=== PATIENT | female | born 1975 | race Caucasian/White ===

== ENCOUNTER 2021-10-06 07:38 | Emergency (ER) | payer BC ==
[~2021-10-06] VITALS: Ht 157.5 cm; Wt 118.2 kg
[2021-10-06] MEDS ORDERED: ondansetron/PF 4mg/2ml inj IV ONE (08:10)
[2021-10-06 09:10] LABS: BASOPHILS % (AUTO) 0.1 % (0-1); EOSINOPHILS % (AUTO) 0.2 % (0-6); HEMATOCRIT 39.8 % (35.0-45.0); HEMOGLOBIN 13.6 g/dl (12.0-16.0); LYMPHOCYTES # (AUTO) 0.5 X10'3 (1.1-4.8); LYMPHOCYTES % (AUTO) 4.1 % (21-51); MEAN CORPUSCULAR HEMOGLOBIN 31.4 PG (27.0-31.0); MEAN CORPUSCULAR HGB CONC 34.3 g/dL (33.0-36.5); MEAN CORPUSCULAR VOLUME 91.7 FL (78-98); MEAN PLATELET VOLUME 7.7 FL (7.4-10.4); MONOCYTES # (AUTO) 0.4 X10'3 (0-0.9); MONOCYTES % (AUTO) 3.3 % (2-12); NEUTROPHILS # (AUTO) 10.9 X10'3 (1.8-7.7); NEUTROPHILS % (AUTO) 92.3 % (42-75); PLATELET COUNT 228 X10'3 (140-440); RED BLOOD COUNT 4.34 X10'6 (4.20-5.60); RED CELL DISTRIBUTION WIDTH 12.9 % (11.5-14.5); WHITE BLOOD COUNT 11.8 X10'3 (4.5-11.0)
[2021-10-06 09:39] LABS: ALANINE AMINOTRANSFERASE 26 U/L (12-78); ALBUMIN 3.6 G/DL (3.4-5.0); ALKALINE PHOSPHATASE 50 IU/L (46-116); ANION GAP 13 (8-16); ASPARTATE AMINO TRANSFERASE 13 U/L (10-37); BILIRUBIN,TOTAL 0.4 MG/DL (0.1-1.0); BLOOD UREA NITROGEN 12 MG/DL (7-18); BUN/CREATININE RATIO 13.3 (6.6-38.0); CALCIUM 9.5 MG/DL (8.5-10.1); CHLORIDE 105 MMOL/L (99-107); GLUCOSE 209 MG/DL (70-104); LIPASE 65 U/L (73-393); POTASSIUM 4.2 MMOL/L (3.5-5.1); SODIUM 141 MMOL/L (135-145); TOTAL CARBON DIOXIDE 23.3 MMOL/L (24-32); TOTAL PROTEIN 7.2 G/DL (6.4-8.2); eGFR 67 ML/MIN
[2021-10-06 10:11] LABS: CLARITY,URINE CLOUDY (Clear); COLOR,URINE YELLOW (Yellow); GLUCOSE, URINE NEGATIVE (Neg); KETONES,URINE NEGATIVE (Neg); OCCULT BLOOD,URINE LARGE (Neg); PROTEIN,URINE TRACE mg/dl (Neg); UA COLLECTION TYPE CLN CATCH MIDSTREAM
[2021-10-06 10:12] LABS: LEUKOCYTE ESTERASE ,URINE SMALL (Neg); NITRITES, URINE POSITIVE (Neg); URINE HCG NEGATIVE (NEG); UROBILINOGEN,URINE 0.2 E.U/dL (0.2-1.0)
[2021-10-06 10:23] LABS: BACTERIA,URINE 4+ /HPF (Neg); MUCUS STRANDS NONE SEEN /LPF (Neg); SQUAMOUS EPITHELIAL CELL,UR MODERATE /LPF (FEW); WBC CLUMPS,URINE FEW /HPF (NEGATIVE); WBC,URINE 30-50 /HPF (0-4)
--- NOTE | 2021-10-06 10:50 | NUR ---
plastic technician at bedside.
[2021-10-06] MEDS ORDERED: HYDR-3965 PO (11:39)
[2021-10-06] MEDS ORDERED: ONDA8TAB13 PO (11:39)
[2021-10-06 12:01] VITALS: BP 158/90
--- NOTE | 2021-10-10 15:55 | NUR ---
PT CALLED REGARDING HER VISIT ON 10/06, NOTIFIED THAT SHE HAD A POSITIVE UTI AND THAT ABX ARE NEEDED. PT REQUESTED THAT HER RX BE CALLED INTO THE [facility] K[facility]LEX 500MG 1 TABLET PO QID x7 DAYS CALLED TO [facility] REQUESTED
== END 2021-10-06 12:05 | disposition home or self-care (01) ==
LOC: ER 07:39
DX: K80.50 Calculus of bile duct without cholangitis or cholecystitis without obstruction (principal); R10.13 Epigastric pain; Z87.442 Personal history of urinary calculi; Z88.8 Allergy status to other drugs, medicaments and biological substances; Z79.899 Other long term (current) drug therapy
CPT/HCPCS: 36415; 76700; 76770; 80053; 81001; 81025; 83690; 85025; 87077; 87088; 87186; 96374; 99284; J2405

== ENCOUNTER 2022-01-21 12:30 | Emergency (ER) | payer BC ==
[~2022-01-21] VITALS: Ht 154.9 cm; Wt 116.0 kg
[~2022-01-21 12:30] MED LIST: ONDA8TAB13 PO
[2022-01-21 13:29] LABS: MEAN CORPUSCULAR VOLUME 90.9 FL (78-98); MEAN PLATELET VOLUME 7.4 FL (7.4-10.4)
[2022-01-21 13:31] LABS: BASOPHILS % (AUTO) 0.2 % (0-1); EOSINOPHILS # (AUTO) 0.1 X10'3 (0-0.9); EOSINOPHILS % (AUTO) 0.6 % (0-6); HEMATOCRIT 40.2 % (35.0-45.0); HEMOGLOBIN 13.5 g/dl (12.0-16.0); LYMPHOCYTES # (AUTO) 0.8 X10'3 (1.1-4.8); LYMPHOCYTES % (AUTO) 7.8 % (21-51); MEAN CORPUSCULAR HEMOGLOBIN 30.6 PG (27.0-31.0); MEAN CORPUSCULAR HGB CONC 33.6 g/dL (33.0-36.5); MONOCYTES # (AUTO) 0.6 X10'3 (0-0.9); MONOCYTES % (AUTO) 5.9 % (2-12); NEUTROPHILS # (AUTO) 8.6 X10'3 (1.8-7.7); NEUTROPHILS % (AUTO) 85.5 % (42-75); PLATELET COUNT 301 X10'3 (140-440); RED BLOOD COUNT 4.43 X10'6 (4.20-5.60); RED CELL DISTRIBUTION WIDTH 13.6 % (11.5-14.5)
[2022-01-21 13:45] LABS: ALANINE AMINOTRANSFERASE 19 U/L (12-78); ALBUMIN 3.3 G/DL (3.4-5.0); ALKALINE PHOSPHATASE 57 IU/L (46-116); ANION GAP 11 (8-16); ASPARTATE AMINO TRANSFERASE 8 U/L (10-37); BILIRUBIN,TOTAL 0.3 MG/DL (0.1-1.0); BLOOD UREA NITROGEN 15 MG/DL (7-18); BUN/CREATININE RATIO 14.3 (6.6-38.0); CHLORIDE 104 MMOL/L (99-107); CREATININE 1.05 MG/DL (0.40-0.90); GLUCOSE 250 MG/DL (70-104); LIPASE 55 U/L (73-393); POTASSIUM 4.3 MMOL/L (3.5-5.1); SODIUM 140 MMOL/L (135-145); TOTAL CARBON DIOXIDE 25.2 MMOL/L (24-32); TOTAL PROTEIN 6.7 G/DL (6.4-8.2); eGFR 56 ML/MIN
[2022-01-21 13:47] LABS: CLARITY,URINE SLIGHTLY CLOUDY (Clear); COLOR,URINE YELLOW (Yellow); GLUCOSE, URINE 500 mg/dl (Neg); KETONES,URINE NEGATIVE (Neg); LEUKOCYTE ESTERASE ,URINE LARGE (Neg); NITRITES, URINE NEGATIVE (Neg); OCCULT BLOOD,URINE TRACE-INTACT (Neg); PROTEIN,URINE NEGATIVE (Neg); UROBILINOGEN,URINE 0.2 E.U/dL (0.2-1.0)
[2022-01-21 13:48] LABS: UA COLLECTION TYPE CLN CATCH MIDSTREAM
[2022-01-21 13:49] LABS: URINE HCG NEGATIVE (NEG)
[2022-01-21 13:57] LABS: SQUAMOUS EPITHELIAL CELL,UR MANY /LPF (FEW); WBC,URINE 50-100 /HPF (0-4)
[2022-01-21 14:00] LABS: BACTERIA,URINE 2+ /HPF (Neg); RBC,URINE NONE SEEN /HPF (0-2)
[2022-01-21] MEDS ORDERED: morphine 4 MG/ML inj SYRINge IV ONE ×2 (14:05→16:45)
[2022-01-21] MEDS ORDERED: ondansetron/PF 4mg/2ml inj IV ONE ×2 (14:05→16:45)
[2022-01-21] MEDS ORDERED: normal saline 1000ml 1,000 ML IV ONE (14:05)
[2022-01-21] MEDS ORDERED: CefTRIAXone 2gm/D5W 50ml BAG 50 ML IV ONE ×2 (14:05→15:30)
--- NOTE | 2022-01-21 15:03 | NUR ---
back from ct scan in stable condition via gabriel
--- NOTE | 2022-01-21 16:00 | NUR ---
PT C/O UPSET STOMACH, INFORMED CINTHIA OSEI PLEASE SEE NEW ORDERS.
[2022-01-21] MEDS ORDERED: calcium carbonate 500mg chew tablet PO ONE ×2 (16:10)
[2022-01-21] MEDS ORDERED: ketorolac trometh. 30mg/ml inj. IV ONE (16:45)
[2022-01-21] MEDS ORDERED: pantoprazole 40mg Tablet.DR PO STA (16:45)
[2022-01-21 17:01] VITALS: BP 120/82
[2022-01-21] MEDS ORDERED: ONDA4TAB12 PO (18:07)
[2022-01-21] MEDS ORDERED: SULF1TAB45 PO (18:07)
[2022-01-21] MEDS ORDERED: FLO0.4C PO (18:07)
[2022-01-21] MEDS ORDERED: HYDR-3965 PO (18:07)
[2022-01-21] MEDS ORDERED: tamsulosin 0.4mg capsule PO SCH (21:00)
== END 2022-01-21 18:13 | disposition home or self-care (01) ==
LOC: ER 12:30
DX: N20.1 Calculus of ureter (principal); N39.0 Urinary tract infection, site not specified; Z88.8 Allergy status to other drugs, medicaments and biological substances
CPT/HCPCS: 36415; 74176; 80053; 81001; 81025; 83690; 85025; 96365; 96366; 96375; 96376; 99284; J0696; J1885; J2270; J2405; J7030

== ENCOUNTER 2022-04-19 08:20 | Emergency (ER) | payer BC ==
[~2022-04-19] VITALS: Ht 157.5 cm; Wt 117.3 kg
[~2022-04-19 08:20] MED LIST changes: +ONDA4TAB12 PO
[2022-04-19] MEDS ORDERED: ketorolac tromethamine 15mg/ml inj. IV ONE (08:50)
[2022-04-19 09:26] LABS: BASOPHILS % (AUTO) 0.4 % (0-1); EOSINOPHILS # (AUTO) 0.1 X10'3 (0-0.9); EOSINOPHILS % (AUTO) 1.6 % (0-6); HEMATOCRIT 36.6 % (35.0-45.0); HEMOGLOBIN 12.3 g/dl (12.0-16.0); LYMPHOCYTES # (AUTO) 0.9 X10'3 (1.1-4.8); LYMPHOCYTES % (AUTO) 13.6 % (21-51); MEAN CORPUSCULAR HEMOGLOBIN 30.9 PG (27.0-31.0); MEAN CORPUSCULAR HGB CONC 33.6 g/dL (33.0-36.5); MEAN PLATELET VOLUME 7.5 FL (7.4-10.4); MONOCYTES # (AUTO) 0.4 X10'3 (0-0.9); MONOCYTES % (AUTO) 6.2 % (2-12); NEUTROPHILS # (AUTO) 5.3 X10'3 (1.8-7.7); NEUTROPHILS % (AUTO) 78.2 % (42-75); PLATELET COUNT 256 X10'3 (140-440); RED BLOOD COUNT 3.97 X10'6 (4.20-5.60); RED CELL DISTRIBUTION WIDTH 13.3 % (11.5-14.5); WHITE BLOOD COUNT 6.7 X10'3 (4.5-11.0)
[2022-04-19 09:27] LABS: CLARITY,URINE SLIGHTLY CLOUDY (Clear); COLOR,URINE YELLOW (Yellow); GLUCOSE, URINE NEGATIVE (Neg); KETONES,URINE NEGATIVE (Neg); LEUKOCYTE ESTERASE ,URINE TRACE (Neg); NITRITES, URINE NEGATIVE (Neg); OCCULT BLOOD,URINE LARGE (Neg); PROTEIN,URINE 30 mg/dl (Neg); UROBILINOGEN,URINE 0.2 E.U/dL (0.2-1.0)
[2022-04-19 09:36] LABS: UA COLLECTION TYPE NON-SPECIFIED
[2022-04-19 09:43] LABS: BACTERIA,URINE NONE SEEN /HPF (Neg); RBC,URINE 50-100 /HPF (0-2); SQUAMOUS EPITHELIAL CELL,UR FEW /LPF (FEW); WBC,URINE 0-4 /HPF (0-4)
[2022-04-19 09:43] LABS: ALANINE AMINOTRANSFERASE 34 U/L (12-78); ALBUMIN 3.6 G/DL (3.4-5.0); ALBUMIN/GLOBULIN RATIO 1.1 (1.1-1.5); ALKALINE PHOSPHATASE 41 IU/L (46-116); ANION GAP 10 (8-16); ASPARTATE AMINO TRANSFERASE 17 U/L (10-37); BILIRUBIN,TOTAL 0.3 MG/DL (0.1-1.0); BLOOD UREA NITROGEN 14 MG/DL (7-18); BUN/CREATININE RATIO 15.2 (6.6-38.0); CALCIUM 9.5 MG/DL (8.5-10.1); CHLORIDE 109 MMOL/L (99-107); CREATININE 0.92 MG/DL (0.40-0.90); GLUCOSE 176 MG/DL (70-104); POTASSIUM 4.3 MMOL/L (3.5-5.1); SODIUM 141 MMOL/L (135-145); TOTAL CARBON DIOXIDE 22.4 MMOL/L (24-32); TOTAL PROTEIN 6.8 G/DL (6.4-8.2); eGFR 65 ML/MIN
[2022-04-19 10:23] VITALS: BP 140/83
== END 2022-04-19 11:50 | disposition home or self-care (01) ==
LOC: ER 08:20
DX: N23 Unspecified renal colic (principal); R11.0 Nausea; N39.0 Urinary tract infection, site not specified; Z87.442 Personal history of urinary calculi; Z90.49 Acquired absence of other specified parts of digestive tract; Z88.8 Allergy status to other drugs, medicaments and biological substances; Z79.899 Other long term (current) drug therapy
CPT/HCPCS: 36415; 74176; 80053; 81001; 85025; 96374; 99284; J1885

== ENCOUNTER 2022-07-31 10:54 | Inpatient (IN) | payer BC ==
[~2022-07-31] VITALS: Ht 157.5 cm; Wt 112.3 kg
[2022-07-31 13:18] LABS: BASOPHILS % (AUTO) 0.3 % (0-1); EOSINOPHILS # (AUTO) 0.2 X10'3 (0-0.9); EOSINOPHILS % (AUTO) 2.6 % (0-6); HEMATOCRIT 39.2 % (35.0-45.0); HEMOGLOBIN 13.4 g/dl (12.0-16.0); LYMPHOCYTES # (AUTO) 1.2 X10'3 (1.1-4.8); MEAN CORPUSCULAR HEMOGLOBIN 30.7 PG (27.0-31.0); MEAN CORPUSCULAR HGB CONC 34.1 g/dL (33.0-36.5); MEAN CORPUSCULAR VOLUME 89.9 FL (78-98); MEAN PLATELET VOLUME 7.6 FL (7.4-10.4); MONOCYTES # (AUTO) 0.6 X10'3 (0-0.9); MONOCYTES % (AUTO) 6.7 % (2-12); NEUTROPHILS # (AUTO) 6.6 X10'3 (1.8-7.7); NEUTROPHILS % (AUTO) 76.4 % (42-75); PLATELET COUNT 303 X10'3 (140-440); RED BLOOD COUNT 4.36 X10'6 (4.20-5.60); WHITE BLOOD COUNT 8.6 X10'3 (4.5-11.0)
[2022-07-31 13:30] LABS: ALANINE AMINOTRANSFERASE 21 U/L (12-78); ALBUMIN 3.3 G/DL (3.4-5.0); ALBUMIN/GLOBULIN RATIO 0.8 (1.1-1.5); ALKALINE PHOSPHATASE 57 IU/L (46-116); ANION GAP 11 (8-16); ASPARTATE AMINO TRANSFERASE 9 U/L (10-37); BILIRUBIN,TOTAL 0.3 MG/DL (0.1-1.0); BLOOD UREA NITROGEN 14 MG/DL (7-18); BUN/CREATININE RATIO 14.4 (6.6-38.0); CALCIUM 10.9 MG/DL (8.5-10.1); CHLORIDE 106 MMOL/L (99-107); CREATININE 0.97 MG/DL (0.40-0.90); GLUCOSE 252 MG/DL (70-104); POTASSIUM 4.6 MMOL/L (3.5-5.1); SODIUM 142 MMOL/L (135-145); TOTAL CARBON DIOXIDE 25.4 MMOL/L (24-32); TOTAL PROTEIN 7.7 G/DL (6.4-8.2); eGFR 61 ML/MIN
[2022-07-31] MEDS ORDERED: ondansetron/PF 4mg/2ml inj IV ONE (14:45)
[2022-07-31] MEDS ORDERED: vancomycin inj 1,000 MG in normal saline 250ml IV soln 250 ML IV ONE (14:45)
[2022-07-31] MEDS ORDERED: normal saline 1000ml 1,000 ML IV ONE (14:45)
[2022-07-31] MEDS ORDERED: vancomycin/NS 1 GM ADD-VANTAGE 250 ML IV ONE (14:57)
[2022-07-31] MEDS ORDERED: morphine 4 MG/ML inj SYRINge IV ONE ×2 (15:05→16:50)
[2022-07-31] MEDS ORDERED: iohexol 350MG/ML 100ml bottle IV ONE (15:25)
[2022-07-31] MEDS ORDERED: ALBU17AE26 PO (16:21)
[2022-07-31] MEDS ORDERED: CEPH-585 PO (16:21)
[2022-07-31] MEDS ORDERED: [UNRECOGNIZED DRUG - CODE] PO (16:21)
[2022-07-31] MEDS ORDERED: SULF1TAB45 PO (16:21)
[2022-07-31] MEDS ORDERED: METF-438 PO (16:21)
[2022-07-31] MEDS ORDERED: AMOX500C42 PO (16:21)
[2022-07-31] MEDS ORDERED: naproxen 500mg tablet PO PRN (16:45)
[2022-07-31] MEDS ORDERED: magnesium hydroxide 30ml (MOM) UD suspension PO PRN (16:45)
[2022-07-31] MEDS ORDERED: diphenhydrAMINE 25mg capsule PO PRN (16:45)
[2022-07-31] MEDS ORDERED: acetaminophen 325mg tablet PO PRN ×2 (16:45)
[2022-07-31] MEDS ORDERED: POTASSIUM BICARB 20meq eff tab 20 MEQ TABLET.EFF PO PRN ×2 (16:45)
[2022-07-31] MEDS ORDERED: morphine 2 MG/ML inj. syringe IV PRN ×2 (16:45)
[2022-07-31] MEDS ORDERED: bisacodyl 10mg suppository rectal RC PRN (16:45)
[2022-07-31] MEDS ORDERED: potassium CL 10mEq/100ml bag 100 ML IV PRN (16:45)
[2022-07-31] MEDS ORDERED: magnesium 2GM in 50ml NS 50 ML IV PRN (16:45)
[2022-07-31] MEDS ORDERED: acetaminophen 650mg rectal suppository RC PRN (16:45)
[2022-07-31] MEDS ORDERED: HYDROcodone/acetaminophen 10/325mg tab PO PRN (16:45)
[2022-07-31] MEDS ORDERED: magnesium Cl slow-release 64mg tablet PO PRN (16:45)
[2022-07-31] MEDS ORDERED: DEXTROSE 15 GM of carb/4 tabs (each vial/BOTTLE has 4 tablets) PO PRN ×2 (16:45)
[2022-07-31] MEDS ORDERED: glucagon, human recombinant 1mg kit SUBCUT PRN (16:45)
[2022-07-31] MEDS ORDERED: ondansetron/PF 4mg/2ml inj IV PRN (16:45)
[2022-07-31] MEDS ORDERED: MESSAGE TO PHARMACY PO ONE (16:45)
[2022-07-31] MEDS ORDERED: magnesium 4gm in 100ml NS 100 ML IV PRN (16:45)
[2022-07-31] MEDS ORDERED: dextrose 50%-water 50ml dispensing syringe IV PRN ×2 (16:45)
[2022-07-31] MEDS ORDERED: albuterol 2.5 MG/3 ML nebule NEB PRN (16:45)
[2022-07-31] MEDS ORDERED: mag hydrox/Alum hydrox/simeth 30ml oral suspension PO PRN (16:45)
[2022-07-31] MEDS ORDERED: ipratropium/albuterol 3ml nebule NEB PRN (17:00)
[2022-07-31] MEDS ORDERED: mag hydrox/Alum hydrox/simeth 30ml oral suspension PO ONE (17:00)
[2022-07-31] MEDS ORDERED: famotidine/PF 10 mg/ml inj IV ONE (17:05)
[2022-07-31 17:16] LABS: HEMOGLOBIN A1C 7.7 % (4.5-6.2)
[2022-07-31] MEDS: normal saline 1000ml 1,000 ML IV SCH (17:35)
[2022-07-31] MEDS: piperacillin/tazo 3.375gm/50ml 50 ML IV SCH (17:37)
[2022-07-31] MEDS: K and/or MAG REPLACEMENT MC SCH (19:22)
[2022-07-31] MEDS: docusate sod 100mg capsule PO SCH (19:22)
[2022-07-31] MEDS: heparin, porcine 5000 units/ml vial SQ SCH (19:55)
[2022-07-31] MEDS: insulin glargine (Lantus) pen - multi-dose SQ SCH (20:34)
[2022-08-01] MEDS: normal saline 1000ml 1,000 ML IV SCH ×3 (00:54→16:48)
[2022-08-01] MEDS: piperacillin/tazo 3.375gm/50ml 50 ML IV SCH ×3 (00:54→17:42)
[2022-08-01 04:45] VITALS: BP 111/58
[2022-08-01] MEDS: vancomycin/NS 1 GM ADD-VANTAGE 250 ML IV SCH ×2 (05:04→16:42)
[2022-08-01 06:00] VITALS: BP 99/63
[2022-08-01 06:13] LABS: ALANINE AMINOTRANSFERASE 45 U/L (12-78); ALBUMIN 2.8 G/DL (3.4-5.0); ALBUMIN/GLOBULIN RATIO 0.8 (1.1-1.5); ALKALINE PHOSPHATASE 70 IU/L (46-116); ANION GAP 11 (8-16); ASPARTATE AMINO TRANSFERASE 25 U/L (10-37); BILIRUBIN,TOTAL 0.2 MG/DL (0.1-1.0); BLOOD UREA NITROGEN 15 MG/DL (7-18); BUN/CREATININE RATIO 16.3 (6.6-38.0); CALCIUM 9.9 MG/DL (8.5-10.1); CHLORIDE 107 MMOL/L (99-107); CHOL/HDL RATIO 4.5 (0.00-4.99); CHOLESTEROL 112 MG/DL (0-200); CREATININE 0.92 MG/DL (0.40-0.90); GLUCOSE 183 MG/DL (70-104); HDL CHOLESTEROL 25 MG/DL (35-60); LDL CHOLESTEROL 69 MG/DL (50-100); MAGNESIUM 1.7 MG/DL (1.5-2.4); PHOSPHORUS 3.2 MG/DL (2.3-4.5); POTASSIUM 4.4 MMOL/L (3.5-5.1); SODIUM 143 MMOL/L (135-145); TOTAL CARBON DIOXIDE 25.2 MMOL/L (24-32); TOTAL PROTEIN 6.5 G/DL (6.4-8.2); TRIGLYCERIDES 128 MG/DL (20-135); eGFR 65 ML/MIN
[2022-08-01] MEDS: pantoprazole 40mg Tablet.DR PO SCH (07:21)
[2022-08-01] MEDS: docusate sod 100mg capsule PO SCH ×2 (07:21→20:00)
[2022-08-01] MEDS: heparin, porcine 5000 units/ml vial SQ SCH ×2 (07:22→20:51)
[2022-08-01] MEDS: K and/or MAG REPLACEMENT MC SCH ×2 (07:22→20:00)
[2022-08-01 08:14] LABS: BASOPHILS % (AUTO) 0.5 % (0-1); EOSINOPHILS # (AUTO) 0.2 X10'3 (0-0.9); EOSINOPHILS % (AUTO) 2.5 % (0-6); HEMATOCRIT 33.5 % (35.0-45.0); HEMOGLOBIN 11.3 g/dl (12.0-16.0); LYMPHOCYTES # (AUTO) 1.1 X10'3 (1.1-4.8); LYMPHOCYTES % (AUTO) 17.7 % (21-51); MEAN CORPUSCULAR HEMOGLOBIN 30.7 PG (27.0-31.0); MEAN CORPUSCULAR HGB CONC 33.8 g/dL (33.0-36.5); MEAN CORPUSCULAR VOLUME 90.8 FL (78-98); MEAN PLATELET VOLUME 8.4 FL (7.4-10.4); MONOCYTES # (AUTO) 0.6 X10'3 (0-0.9); MONOCYTES % (AUTO) 9.1 % (2-12); NEUTROPHILS # (AUTO) 4.3 X10'3 (1.8-7.7); NEUTROPHILS % (AUTO) 70.2 % (42-75); PLATELET COUNT 283 X10'3 (140-440); RED BLOOD COUNT 3.69 X10'6 (4.20-5.60); RED CELL DISTRIBUTION WIDTH 13.4 % (11.5-14.5); WHITE BLOOD COUNT 6.2 X10'3 (4.5-11.0)
--- NOTE | 2022-08-01 09:40 | NUR ---
Per EMR pt with T2DM, well controlled with A1c 7.7%. Written DM education with RD contact information placed in patient's chart. Will remain available. Addendum: 08/01/22 at [address] Amended: Links added.
--- NOTE | 2022-08-01 10:16 | NUR ---
Message: MAULIK HOPPER RM [id number]. REFUSING INSULIN FRO BLOOD GLUCOSE OF 201. THANK YOU SANDRINE MO Custom Responses: promotional table spacer
[2022-08-01] MEDS: insulin Lispro (HumaLOG) vial - multi-dose SQ SCH (10:33)
[2022-08-01 11:00] VITALS: BP 101/66
--- NOTE | 2022-08-01 16:25 | NUR ---
Message: RE MELLO HOPPER RM [id number] PLEASE CALL PT HAS QUESTIONS RE HER ANTIBIOTICS I AM ALSO HAVING DIFFICULTY WITH PATIENT THANK YOU, SANDRINE MO Custom Responses: promotional table spacer Subscriber Id:
--- NOTE | 2022-08-01 17:52 | NUR ---
END OF SHIFT NOTE: PT REUSED INSULIN THIS AM WHEN BG WAS 201 AND HAD EATEN 50G OF CARBS. I EXPLAINED D/T HER CONTRAST FOR SCAN IT WAS CONTRAINDICTED. DR GARRIDO NOTIFIED, HE SPOKE WITH THE PATIENT. SHE RELUCTANTLY AGREED TO TAKE INSULIN, BUT ONLY 2 TIMES A DAY. I GAVE 8 UNITS IN AM, CHECKED HER BG IN AFTERNOON IT WAS 14
--- NOTE | 2022-08-01 17:54 | NUR ---
CONTINUATION OF PREV NOTE. BG WAS 146 NO INSULIN GIVEN. PT HAS TO BE PLACED IN A SHARED ROOM TO ALLOW A SINGLE ROOM FOR CARDIAC PROCEDURE PATIENTS. PT GOT EXTREMELY UPSET STATING TO OTHER NURSES SHE DOESNT WANT TO BREATH OTHER PEOPLES AIR, SHE DEMANDED A PRIVATE ROOM. EVENTUALLY SHE GATHERED ALL HER BAGS AND SATI IN THE HALLWAY NEAR A WINDOW. AT 1600 I ASKED HER IF SHE WAS WILLING TO ALLOW ME TO DO WOUND CARE AND START HER IV ANTIBIOTICS. SHE REFUSED THE WOUND CARE AND DEMANDED TO TALK TO DR GARRIDO RE HER IV ANTIBIOTICS. DR GARRIDO CALLED STATED HE WOULD NOT BE RETURNING TO THE FLOOR TO SPEAK WITH HER, HE WOULD SEE HER TOMORROW. HE STATED IF SHE LEFT THE PCU UNIT SHE WOULD BE CONSIDERED AN AMA AND WOULD NEED TO RETURN TO ED TO BE READMITTED. I EXPLANED THIS TO THE PATIENT, SHE DEMANDED A WRITTEN POLICY THAT STATED THIS. I TOLD HER I WAS NOT SURE THERE WAS ONE BUT I WOULD LOOK INTO IT. I EXPLAINED THE RISK OF LEAVING AND AN EVENT HAPPENING WITH NO LICENSED STAFF TO HELP. PATIENT CURRENTLY IN ROOM CRYING VERY LOUDLY, TELLING ME I NEEDED TO GET HER A NAPROXEN. I SATED I WOULD SEE WHA WAS ORDERED, SHE RETURNED WITH EITHER YOU GUYS CAN GIVE IT TO ME OR I CAN TAKE MY OWN. I TOLD SHE CAN NOT TAKE HER OWN MEDS THEN I ASKED IF SHE HAD HER MEDS WITH HER SHE RETURNED WITH "NO" SHE ASKED FOR SOMETHIGN TO "CALM HER DOWN" THAT SHE HAS A PHOBIA AND CANT CONTROL IT SHE IS SCARED TO BREATH THE SAME AIR OTHER PEOPLE. I ASKED IF SHE TAKES ANYTHING AT HOME SHE SAID NO, I DONT GO AROUND OTHER PEOPLE. I TOLD HER I WOULD PAGE THE DR, AND CALL PHARMACY FOR NAPROXEN,
--- NOTE | 2022-08-01 18:00 | NUR ---
Pt refused 1800 vital signs.
--- NOTE | 2022-08-01 18:09 | NUR ---
Message: RE MELLO HOPPER RM [id number] PT REQUESTING CPAP ORDER AND "SOMETHING TO CALM HER DOWN" THANK YOU SANDRINE MO Custom Responses: promotional table spacer
[2022-08-01] MEDS ORDERED: LORazepam 0.5 MG tablet PO PRN (19:15)
--- NOTE | 2022-08-01 20:00 | NUR ---
When rounding on patient, pt stated that she was "recording everything with video", RN informed pt that it is illegal to record people without consent. Pt then responded by saying "well I am using voice recordings", RN then informed pt that any form of recording without consent is illegal. medical receptionist notified of interaction.
[2022-08-01] MEDS: insulin glargine (Lantus) pen - multi-dose SQ SCH (20:46)
[2022-08-01] MEDS: HYDROcodone/acetaminophen 5mg/325mg tablet PO PRN ×2 (21:15→21:24)
--- NOTE | 2022-08-01 21:32 | NUR ---
Pt resting in bed. R hand IV removed d/t pain at site, site appears WNL, gauze and tape dressing applied. R abdomen wound dressing changed at 2100 - wound cleansed with sterile saline and gauze, new telfa gauze and foam tape dressing applied. Primary RN offered pre-medication for pain, pt denies need for intervention. After dressing change, pt requested Mabel pain medication for 8/10 pain around cellulitis area (RLQ).
[2022-08-01 22:00] VITALS: BP 109/62
[2022-08-02] MEDS: piperacillin/tazo 3.375gm/50ml 50 ML IV SCH ×2 (00:50→08:19)
[2022-08-02 02:00] VITALS: BP 110/72
[2022-08-02] MEDS ORDERED: VANCOMYCIN LEVEL IV ONE (03:30)
[2022-08-02] MEDS: normal saline 1000ml 1,000 ML IV SCH ×2 (03:49→08:45)
[2022-08-02 03:53] LABS: BASOPHILS % (AUTO) 0.7 % (0-1); EOSINOPHILS # (AUTO) 0.1 X10'3 (0-0.9); EOSINOPHILS % (AUTO) 2.3 % (0-6); HEMATOCRIT 33.2 % (35.0-45.0); HEMOGLOBIN 11.3 g/dl (12.0-16.0); LYMPHOCYTES # (AUTO) 1.4 X10'3 (1.1-4.8); LYMPHOCYTES % (AUTO) 24.9 % (21-51); MEAN CORPUSCULAR HEMOGLOBIN 30.7 PG (27.0-31.0); MEAN CORPUSCULAR HGB CONC 33.9 g/dL (33.0-36.5); MEAN CORPUSCULAR VOLUME 90.4 FL (78-98); MEAN PLATELET VOLUME 7.6 FL (7.4-10.4); MONOCYTES # (AUTO) 0.4 X10'3 (0-0.9); MONOCYTES % (AUTO) 7.6 % (2-12); NEUTROPHILS # (AUTO) 3.5 X10'3 (1.8-7.7); NEUTROPHILS % (AUTO) 64.5 % (42-75); PLATELET COUNT 280 X10'3 (140-440); RED BLOOD COUNT 3.67 X10'6 (4.20-5.60); RED CELL DISTRIBUTION WIDTH 13.2 % (11.5-14.5); WHITE BLOOD COUNT 5.5 X10'3 (4.5-11.0)
[2022-08-02 04:07] LABS: ALANINE AMINOTRANSFERASE 40 U/L (12-78); ALBUMIN 2.7 G/DL (3.4-5.0); ALBUMIN/GLOBULIN RATIO 0.8 (1.1-1.5); ALKALINE PHOSPHATASE 63 IU/L (46-116); ANION GAP 7 (8-16); ASPARTATE AMINO TRANSFERASE 24 U/L (10-37); BILIRUBIN,TOTAL 0.3 MG/DL (0.1-1.0); BLOOD UREA NITROGEN 13 MG/DL (7-18); BUN/CREATININE RATIO 15.9 (6.6-38.0); CALCIUM 9.5 MG/DL (8.5-10.1); CHLORIDE 109 MMOL/L (99-107); CREATININE 0.82 MG/DL (0.40-0.90); GLUCOSE 156 MG/DL (70-104); MAGNESIUM 1.8 MG/DL (1.5-2.4); PHOSPHORUS 3.3 MG/DL (2.3-4.5); POTASSIUM 4.2 MMOL/L (3.5-5.1); SODIUM 141 MMOL/L (135-145); TOTAL CARBON DIOXIDE 25.2 MMOL/L (24-32); VANCOMYCIN,TROUGH 7.2 UG/ML (6.0-14.0); eGFR 74 ML/MIN
[2022-08-02] MEDS: vancomycin/NS 1 GM ADD-VANTAGE 250 ML IV SCH (04:47)
[2022-08-02 06:00] VITALS: BP 109/52
[2022-08-02] MEDS: K and/or MAG REPLACEMENT MC SCH (08:00)
[2022-08-02] MEDS: heparin, porcine 5000 units/ml vial SQ SCH (08:19)
[2022-08-02] MEDS: docusate sod 100mg capsule PO SCH (08:20)
[2022-08-02] MEDS: pantoprazole 40mg Tablet.DR PO SCH (08:20)
--- NOTE | 2022-08-02 08:47 | NUR ---
promotional table spacer Page Accepted promotional table spacer Message: NAYELI HOPPER RM [id number] CRITICAL LAB RESULT. +MRSA IN ABD WOUND THANK YOU, SANDRINE MO Custom Responses: promotional table spacer Transaction number: [id number]
[2022-08-02] MEDS: insulin Lispro (HumaLOG) vial - multi-dose SQ SCH (09:54)
[2022-08-02] MEDS ORDERED: LACT1CAP26 PO (10:58)
[2022-08-02] MEDS ORDERED: CLIN-91 PO (10:58)
[2022-08-02] MEDS ORDERED: VANCOmycin 1250MG/NS 250ml Bag 250 ML IV SCH (16:00)
[2022-08-04] MEDS ORDERED: VANCOMYCIN LEVEL IV ONE (03:30)
== END 2022-08-02 13:37 | disposition home or self-care (01) | DRG 603 ==
LOC: ER 10:55 → ED HOLD 16:48 → PCU 3S 08-01 04:30
PROVIDERS: ADMIT Family Medicine; ATTEND Family Medicine
PROC: BW211ZZ Computerized Tomography (CT Scan) of Abdomen and Pelvis using Low Osmolar Contrast (ICD-10-PCS; principal; 2022-07-31)
DX: L03.311 Cellulitis of abdominal wall (principal); Z68.42 Body mass index [BMI] 45.0-49.9, adult; L02.211 Cutaneous abscess of abdominal wall; E11.9 Type 2 diabetes mellitus without complications; E66.01 Morbid (severe) obesity due to excess calories; G89.4 Chronic pain syndrome; Z20.822 Contact with and (suspected) exposure to COVID-19; J45.909 Unspecified asthma, uncomplicated; Z87.891 Personal history of nicotine dependence; Z88.8 Allergy status to other drugs, medicaments and biological substances; Z28.310 Unvaccinated for COVID-19; Z79.84 Long term (current) use of oral hypoglycemic drugs; Z83.3 Family history of diabetes mellitus; Z87.442 Personal history of urinary calculi; Z90.49 Acquired absence of other specified parts of digestive tract; Z79.899 Other long term (current) drug therapy
CPT/HCPCS: 36415; 71045; 74177; 80053; 80061; 80202; 82948; 83036; 83605; 83735; 84100; 84145; 84443; 84484; 85025; 87040; 87070; 87075; 87077; 87186; 87635; 93005; 94760; 99285; A6258; A6449; G0378; J1644; J1815; J2270; J2405; J2543; J3370; J3490; J7030; J7040; Q9967